=== PATIENT | female | born 1965 | race Caucasian/White ===

== ENCOUNTER 2018-08-05 09:46 | Emergency (ER) | payer MEDICAID ==
[~2018-08-05] VITALS: Ht 154.9 cm; Wt 91.9 kg
--- NOTE | 2018-08-05 09:48 | NUR ---
PT [facility] BLS TO ER BED 08
[2018-08-05 09:50] VITALS: BP 135/66
--- NOTE | 2018-08-05 09:55 | NUR ---
52/F BIBA C/O NON RADIATING MID ABDOMINAL PAIN /10, NON PRODUCTIVE COUGH, NAUSEA AND SOB X 2 DAYS. - VOMITING, DIARRHEA OR ACCESSORY MUSCLE USE. BREATH SOUND CLEAR BILATERALLY WITH DIMINISHED BL LOWER LOBES, SPO2 99% ON ROOM AIR. HX; ASTHMA RX; ALBUTEROL
--- NOTE | 2018-08-05 10:11 | NUR ---
Patient being evaluated by DR SANTIAGO at bedside.
[2018-08-05] MEDS ORDERED: OSELTAMIVIR PHOSPHATE 75 MG CAP PO ONE (11:00)
[2018-08-05 11:29] VITALS: BP 135/66
--- NOTE | 2018-08-05 11:31 | NUR ---
Patient discharged with v/s stable. Written and verbal after care instructions given and explained. Patient alert, oriented and verbalized understanding of instructions. Ambulatory with steady gait. All questions addressed prior to discharge. ID band removed. Patient advised to follow up with PMD. Rx of ZOFRAN, ALBUTEROL, ALBUTEROL, TAMIFLU given. Patient educated on indication of medication including possible reaction and side effects. Opportunity to ask questions provided and answered.
== END 2018-08-05 11:31 | disposition home or self-care (01) ==
LOC: MED 09:46
DX: J10.1 Influenza due to other identified influenza virus with other respiratory manifestations (principal); J45.909 Unspecified asthma, uncomplicated; Z88.0 Allergy status to penicillin; Z98.890 Other specified postprocedural states
CPT/HCPCS: 36415; 81002; 81025; 87804; 99283

== ENCOUNTER 2023-05-03 14:12 | Emergency (ER) | payer MEDICAID ==
[~2023-05-03] VITALS: Ht 157.5 cm; Wt 98.9 kg
[2023-05-03 14:44] VITALS: BP 118/85; PULSE 73; RESP 14; TEMP 98.5; O2SAT 97
[2023-05-03] MEDS ORDERED: IPRATROPIUM 0.02% 0.5 MG/2.5 ML NEBU INH ONE (14:55)
[2023-05-03] MEDS ORDERED: ALBUTEROL 0.083% 2.5 MG/3 ML NEBU INH ONE (14:55)
[2023-05-03 15:03] VITALS: TEMP 98.5
[2023-05-03 15:21] LABS: BASOPHILS % (AUTO) 0.3 % (0.0-2.0); EOSINOPHILS # (AUTO) 0.2 K/uL (0-0.4); EOSINOPHILS % (AUTO) 2.3 % (0.0-4.0); HEMATOCRIT 38.3 % (36-48); LYMPHOCYTES # (AUTO) 1.5 K/uL (2.5-16.5); LYMPHOCYTES % (AUTO) 22.4 % (20.5-51.1); MEAN CORPUSCULAR HEMOGLOBIN 30 pg (27-31); MEAN CORPUSCULAR HGB CONC 34 g/dL (33-37); MEAN CORPUSCULAR VOLUME 88.4 fL (80-94); MONOCYTES # (AUTO) 0.7 K/uL (0.8-1.0); NEUTROPHILS # (AUTO) 4.3 K/uL (1.8-7.7); PLATELET COUNT (AUTO) 242 K/uL (140-450); RED BLOOD CELL COUNT(AUTO) 4.33 MIL/uL (4.20-5.40); RED CELL DISTRIBUTION WIDTH 13.9 % (11.6-13.7); WHITE BLOOD COUNT (AUTO) 6.6 K/uL (4.8-10.8)
[2023-05-03 15:24] VITALS: PULSE 76; RESP 16; O2SAT 96
[2023-05-03 15:32] LABS: ANION GAP 10.4 (8-16); CALCIUM 8.8 mg/dL (8.5-10.1); CARBON DIOXIDE 28.5 mmol/L (21-32); CREATININE 0.9 mg/dL (0.6-1.3); POTASSIUM 3.9 mmol/L (3.5-5.1)
[2023-05-03] MEDS ORDERED: ALBU0.0912 INH (15:58)
[2023-05-03] MEDS ORDERED: PRED20TA5 PO (15:58)
[2023-05-03 16:12] VITALS: BP 129/80; PULSE 74; RESP 17; O2SAT 97
== END 2023-05-03 16:12 | disposition home or self-care (01) ==
LOC: MED 14:12
DX: J45.901 Unspecified asthma with (acute) exacerbation (principal); R07.9 Chest pain, unspecified; R06.02 Shortness of breath; Z88.0 Allergy status to penicillin
CPT/HCPCS: 36415; 71045; 80048; 84484; 85025; 93005; 94640; 99285; J7613; J7644

== ENCOUNTER 2023-06-04 13:45 | Emergency (ER) | payer MEDICAID ==
[~2023-06-04] VITALS: Ht 162.6 cm; Wt 72.6 kg
[~2023-06-04 13:45] MED LIST: ALBU0.0912 INH; PRED20TA5 PO
[2023-06-04 14:05] VITALS: BP 135/89; PULSE 89; RESP 18; TEMP 97; O2SAT 98
[2023-06-04] MEDS ORDERED: LID5T TP (14:37)
[2023-06-04] MEDS ORDERED: NAPR-1704 PO (14:37)
[2023-06-04 14:50] VITALS: BP 135/89; PULSE 89; RESP 18; TEMP 97; O2SAT 98
== END 2023-06-04 14:50 | disposition home or self-care (01) ==
LOC: MED 13:45
DX: M54.30 Sciatica, unspecified side (principal); J45.909 Unspecified asthma, uncomplicated; Z88.0 Allergy status to penicillin; Z79.899 Other long term (current) drug therapy
CPT/HCPCS: 99283